=== PATIENT | male | born 1965 | race Caucasian/White ===

== ENCOUNTER 2021-08-18 10:53 | Emergency (ER) | payer BC ==
--- OUTSIDE RECORDS SUMMARY | 2021-08-18 10:56 | XMS REPORT | Continuity of Care Document ---
:[address] [facility] t Address [address] [place] [address] Dr. Frias. [address] [place] [id number] Care Team Providers Name Role Phone DEFRIECE Attending Clinician Unavailable Problems This patient has no known problems. Allergies, Adverse Reactions, Alerts This patient has no known allergies or adverse reactions. Medications This patient has no known medications. Procedures This patient has no known procedures. Encounters Start End Encounter Admission Attending Care Care Encounter Source Date/Time Date/Time Type Type Clinicians Facility Department ID 2020-10-27 2020-10-27 Outpatient [facility], [facility] [id number] [place] 00:00:00 00:00:00 UYEN [id number] Results This patient has no known results.
--- NOTE | 2021-08-18 12:11 | RAD REPORT ---
EXAM DESCRIPTION: CT - CTHCSPWOC - 08/18/2021 11:47 am CLINICAL HISTORY: fall, head and neck pain COMPARISON: No comparisons TECHNIQUE: Axial 5 mm thick images of the head were obtained. Axial 2 mm thick images of the cervic al spine were obtained with sagittal and coronal reconstruction images generated and reviewed. All CT scans are performed using dose optimization technique as appropriate and may include automated exposure control or mA/KV adjustment according to patient size. FINDINGS: No intracranial hemorrhage, mass, edema or acute intracranial finding. No suspicion for ac jaclyn infarction. No extra-axial fluid collections. Mastoid air cells and paranasal sinuses are clear. No globe or orbit abnormality seen. Cervical body height and alignment are normal. No disk space narrowing. No fracture or acute bony abn ormality. Patient has large anterior endplate spurs C4-C6 with incomplete anterior bony bridging. Ellie tral canal detail is inherently limited. No paraspinal mass or hematoma. IMPRESSION: Negative CT head examination for acute or significant finding. Negative CT cervical spine examination for acute or significant finding.
--- NOTE | 2021-08-18 13:16 | RAD REPORT ---
EXAM DESCRIPTION: RAD - Lumbar Spine 3 Views - 08/18/2021 1:08 pm CLINICAL HISTORY: fall;Pain Radiculopathy COMPARISON: No comparisons FINDINGS: Vertebral body heights appear maintained. No compression fracture noted. Mild disc thinnin g is seen particularly at the lower lumbar levels with small endplate osteophytes. No spondylolysis o r spondylolisthesis. Prominent anterior bridging osteophytes noted. IMPRESSION: No acute lumbar spine abnormality. Mild lower lumbar spondylosis.
--- NOTE | 2021-08-18 13:16 | RAD REPORT ---
EXAM DESCRIPTION: RAD - Thoracic Spine Ap/Lat - 08/18/2021 1:08 pm CLINICAL HISTORY: fall;Pain Radiculopathy COMPARISON: No comparisons FINDINGS: The thoracic spine vertebral body heights and disc spaces are largely maintained. No acute compression fracture. No significant malalignment. Prominent anterior bridging thoracic osteophytes. IMPRESSION: Prominent anterior bridging thoracic osteophytes.
--- NOTE | 2021-08-18 13:24 | ER ---
Nurse's Notes [facility] Name: Elton Le Age: 56 yrs Sex: Male : 1965 Arrival Date: 08/18/2021 Time: 10:57 Bed 12 Private MD: Diagnosis: Contusion of lower back and pelvis;Contusion of unspecified part of neck, initial encounter;Unspecified superficial injury of unspecified part of head, initial encounter Presentation: 08/18 11:02 Chief complaint: Patient states: pt walking slipped and fell. pt c/o pain to l lower [facility] back and neck. - loc. Coronavirus screen: Vaccine status: Patient reports receiving the 2nd dose of the covid vaccine. Ebola Screen: No symptoms or risks identified at this time. Initial Sepsis Screen: Does the patient meet any 2 criteria? No. Patient's initial sepsis screen is negative. Does the patient have a suspected source of infection? No. Patient's initial sepsis screen is negative. Risk Assessment: Do you want to hurt yourself or someone else? Patient reports no desire to harm self or others. Onset of symptoms was August 18, 2021 at 09:50. 11:02 Method Of Arrival: Ambulatory [facility] 11:02 Acuity: OTONIEL 4 [facility] Triage Assessment: 11:05 General: Appears in no apparent distress. Behavior is calm, cooperative. Pain: [facility] Complains of pain in low back area, left flank and left low back Pain currently is 2 out of 10 on a pain scale. Quality of pain is described as dull, Pain began suddenly, Is continuous, Alleviated by Aggravated by exercise, increased activity. Historical: - Allergies: 11:04 No Known Allergies; [facility] - Home Meds: 11:04 metformin 1,000 mg Oral tr24 1 tab once daily [Active]; Lipitor 10 mg Oral tab [Active];[facility] - Immunization history:: Adult Immunizations up to date. - Social history:: Smoking status: Patient denies any tobacco usage or history of. - Family history:: not pertinent. - Hospitalizations: : No recent hospitalization is reported. Screenin:06 Abuse screen: Denies threats or abuse. Denies injuries from another. Nutritional ww screening: No deficits noted. Tuberculosis screening: No symptoms or risk factors identified. Fall Risk Fall in past 12 months (25 points). No secondary diagnosis (0 pts). No IV (0 pts). Ambulatory Aid- None/Bed Rest/Nurse Assist (0 pts). Gait- Normal/Bed Rest/Wheelchair (0 pts) Mental Status- Oriented to own ability (0 pts). Total Lakhani Fall Scale indicates Low Risk Score (25-44 pts). Fall prevention measures have been instituted. Placed close to Nursing Station Frequent Obs/Assesments occuring Family Present and informed to notify staff if they need to leave bedside. Assessment: 12:06 General: Appears uncomfortable, well groomed, well developed, well nourished, Behavior ww is calm, cooperative, appropriate for age. Pain: Complains of pain in scalp and back. Neuro: Level of Consciousness is awake, alert, obeys commands, Oriented to person, place, time, situation, Appropriate for age Moves all extremities. Speech is normal, Reports dizziness, during CT scan but has resolved. Cardiovascular: No deficits noted. Denies chest pain, nausea, shortness of breath, Capillary refill < 3 seconds. Respiratory: No deficits noted. Airway is patent Respiratory effort is even, unlabored, Respiratory pattern is regular, symmetrical. GI: No deficits noted. No signs and/or symptoms were reported involving the gastrointestinal system. : No deficits noted. No signs and/or symptoms were reported regarding the genitourinary system. Derm: No deficits noted. No signs and/or symptoms reported regarding the dermatologic system. Skin is intact, Skin is pink, warm \T\ dry. Musculoskeletal: Reports pain in scalp and back. 13:51 Reassessment: Patient appears in no apparent distress at this time. Patient and/or ss family updated on plan of care and expected duration. Pain level reassessed. Patient is alert, oriented x 3, equal unlabored respirations, skin warm/dry/pink. Vital Signs: 11:02 BP 123 / 61; Pulse 80; Resp 17; Temp 97.6; Pulse Ox 100% ; Weight 102.06 kg; Height 5 jh6 ft. 8 in. (172.72 cm); Pain 2/10; 12:06 BP 114 / 65; Pulse 74; Resp 18; Pulse Ox 96% on R/A; ww 11:02 Body Mass Index 34.21 (102.06 kg, 172.72 cm) jh6 Mirza Coma Score: 12:06 Eye Response: spontaneous(4). Verbal Response: oriented(5). Motor Response: obeys ww commands(6). Total: 15. ED Course: 10:57 Patient arrived in ED. ds1 11:04 Triage completed. 6 11:06 Arm band placed on right wrist. 6 11:31 Houston Alvarez MD is Attending Physician. rn 11:32 Nannette Baugh, RN is Primary Nurse. ww 11:48 CT Head C Spine In Process Unspecified. EDMS 12:06 Patient has correct armband on for positive identification. Bed in low position. Call ww light in reach. Adult w/ patient. 13:08 XRAY Lumbar Spine (3 Views) In Process Unspecified. EDMS 13:08 XRAY Thoracic Spine (Ap/lat) In Process Unspecified. EDMS 13:50 No provider procedures requiring assistance completed. Patient did not have IV access ss during this emergency room visit. Administered Medications: No medications were administered Outcome: 13:23 Discharge ordered by MD. rn 13:50 Discharged to home ambulatory. ss 13:50 Condition: good 13:50 Discharge instructions given to patient, friend, Instructed on discharge instructions, follow up and referral plans. medication usage, Demonstrated understanding of instructions, follow-up care, medications. 13:51 Patient left the ED. ss Signatures: Dispatcher [employer] EDDE Fior Thornton ds1 Houston Alvarez MD MD rn Smirch, Shelby, RN RN ss Hastedt, Jennifer, RN RN [facility] Nannette Baugh, ARSALAN min
--- NOTE | 2021-08-18 13:24 | EDPHYS ---
Physician Documentation [facility] Name: Elton Le Age: 56 yrs Sex: Male : 1965 Arrival Date: 08/18/2021 Time: 10:57 Bed 12 Private MD: ED Physician Houston Alvarez HPI: 08/18 12:14 This 56 yrs old Male presents to ER via Ambulatory with complaints of Fall Injury. rn 12:14 Details of fall: The patient fell from an upright position, while walking. Onset: The rn symptoms/episode began/occurred just prior to arrival. Associated injuries: The patient sustained injury to the head, neck injury, upper back injury, injury to the low back. Severity of symptoms: At their worst the symptoms were mild, in the emergency department the symptoms are unchanged. The patient has not experienced similar symptoms in the past. The patient has not recently seen a physician. Patient reports fall from standing, was walking and slipped on ramp. Reports hit head and neck and has mid and lower back pain. No LOC. Does not take blood thinners. No extremity injury. No vomiting.. Historical: - Allergies: 11:04 No Known Allergies; [facility] - Home Meds: 11:04 metformin 1,000 mg Oral tr24 1 tab once daily [Active]; Lipitor 10 mg Oral tab [Active];[facility] - Immunization history:: Adult Immunizations up to date. - Social history:: Smoking status: Patient denies any tobacco usage or history of. - Family history:: not pertinent. - Hospitalizations: : No recent hospitalization is reported. ROS: 12:14 Constitutional: Negative for fever, chills, and weight loss, Eyes: Negative for injury, rn pain, redness, and discharge, Neck: Positive for neck injury and pain Cardiovascular: Negative for chest pain, palpitations, and edema, Respiratory: Negative for shortness of breath, cough, wheezing, and pleuritic chest pain, Abdomen/GI: Negative for abdominal pain, nausea, vomiting, diarrhea, and constipation, Back: Positive for mid and low back pain : Negative for injury, bleeding, discharge, and swelling, MS/Extremity: Negative for injury and deformity, Skin: Negative for injury, rash, and discoloration, Neuro: Negative for headache, weakness, numbness, tingling, and seizure. Exam: 12:14 Constitutional: This is a well developed, well nourished patient who is awake, alert, rn and in no acute distress. Head/Face: Normocephalic, atraumatic. Eyes: Pupils equally round and reactive. Periorbital areas with no swelling, redness, or edema. Neck: No cervical spinal tenderness Chest/axilla: No costal tenderness Cardiovascular: Regular rate and rhythm. No pulse deficits. Respiratory: No increased work of breathing, no retractions or nasal flaring. Abdomen/GI: Soft, non-tender Back: Mild lower thoracic and upper lumbar paraspinal tenderness, no step-off. Skin: Warm, dry MS/ Extremity: Pulses equal, no cyanosis. Neuro: Awake and alert, GCS 15, oriented to person, place, time, and situation. Cranial nerves II-XII grossly intact. Motor strength 5/5 in all extremities. Sensory grossly intact. Cerebellar exam normal. Vital Signs: 11:02 BP 123 / 61; Pulse 80; Resp 17; Temp 97.6; Pulse Ox 100% ; Weight 102.06 kg; Height 5 jh6 ft. 8 in. (172.72 cm); Pain 2/10; 12:06 BP 114 / 65; Pulse 74; Resp 18; Pulse Ox 96% on R/A; ww 11:02 Body Mass Index 34.21 (102.06 kg, 172.72 cm) jh6 Baldwin Coma Score: 12:06 Eye Response: spontaneous(4). Verbal Response: oriented(5). Motor Response: obeys ww commands(6). Total: 15. MDM: 11:31 Patient medically screened. rn 13:22 Differential diagnosis: closed head injury, contusion, fracture. Data reviewed: vital rn signs, nurses notes, radiologic studies, CT scan, plain films, and as a result, I will discharge patient. Counseling: I had a detailed discussion with the patient and/or guardian regarding: the historical points, exam findings, and any diagnostic results supporting the discharge/admit diagnosis, radiology results, the need for outpatient follow up, to return to the emergency department if symptoms worsen or persist or if there are any questions or concerns that arise at home. Response to treatment: There is no appreciated change of the patient's symptoms at this time, and as a result, I will discharge patient. Special discussion: I discussed with the patient/guardian in detail that at this point there is no indication for admission to the hospital. It is understood, however, that if the symptoms persist or worsen the patient needs to return immediately for re-evaluation. 08/18 11:37 Order name: CT Head C Spine; Complete Time: 13:22 rn 08/18 11:37 Order name: XRAY Lumbar Spine (3 Views); Complete Time: 13:22 rn 08/18 11:37 Order name: XRAY Thoracic Spine (Ap/lat); Complete Time: 13:22 rn Administered Medications: No medications were administered Disposition Summary: 08/18/21 13:23 Discharge Ordered Location: Home rn Problem: new rn Symptoms: have improved rn Condition: Stable rn Diagnosis - Contusion of lower back and pelvis rn - Contusion of unspecified part of neck, initial encounter rn - Unspecified superficial injury of unspecified part of head, initial encounter rn Followup: rn - With: Private Physician - When: As needed - Reason: Recheck today's complaints, Re-evaluation by your physician Discharge Instructions: - Discharge Summary Sheet rn - Contusion rn - Neck Contusion rn - Head Injury, Adult rn Forms: - Medication Reconciliation Form rn - Thank You Letter 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
[2021-08-18 13:57] VITALS: TEMP 97.6
[2021-08-18 13:58] VITALS: BP 114/65; O2SAT 96
== END 2021-08-18 13:51 | disposition home or self-care (01) ==
LOC: ER 10:53
DX: S09.90XA Unspecified injury of head, initial encounter (principal); S30.0XXA Contusion of lower back and pelvis, initial encounter; S10.93XA Contusion of unspecified part of neck, initial encounter; W01.0XXA Fall on same level from slipping, tripping and stumbling without subsequent striking against object, initial encounter
CPT/HCPCS: 70450; 72070; 72100; 72125; 99283